=== PATIENT | female | born 1995 | race Caucasian/White ===

== ENCOUNTER → 2024-07-01 | Outpatient (CLI) | payer OTHER, SELFPAY ==
[2024-07-01 12:17] LABS: Absolute Lymphocyte Count 2.42 X10^3/uL (0.83-4.51); Absolute Neutrophil Count 5.8 X10^3/uL (2.0-7.7); Basophil# 0.04 X10^3/uL; Basophil% 0.4 % (0-1); Eosinophil# 0.09 X10^3/uL; Hematocrit 42.7 % (37-47); Lymphocyte # 2.42 X10^3/ul (0.83-4.51); Lymphocyte % 27.1 % (19-41); Mean Corp Hgb Conc 32.8 g/dL (32-36); Mean Corpuscular Hgb 27.1 pg (27.0-32.0); Mean Corpuscular Volume 82.6 fL (81-99); Mean Platelet Vol. 11.1 fl (6.2-12.0); Monocyte# 0.52 X10^3/uL; Monocyte% 5.8 % (0-10); NRBC Flagged by Analyzer 0 % (0-5); Neutrophil # 5.82 X10^3/uL (2.7-7.7); Neutrophil % 65.4 % (47-70); Platelet Count 303 K/mm3 (150-450); RBC Distribution Width SD 41.8 fl (35.1-43.9); Red Blood Count 5.17 M/mm3 (4.2-5.4); White Blood Count 8.9 K/mm3 (4.4-11.0)
[2024-07-01 13:16] LABS: ALB/GLOB Ratio 1.5 RATIO (0.9-2.4); AST(SGOT) 19 U/L (<=31); Alanine Aminotransfer ALT/SGPT 30 U/L (<=34); Albumin, Serum 4.7 g/dL (3.5-5.0); Alkaline Phosphatase 93 U/L (35-104); Anion Gap 13 (5-15); BUN 7 mg/dL (4-19); BUN/Creat Ratio 13.1 RATIO (10-20); Calcium,Total 9.9 mg/dL (7.6-11.0); Chloride 103 mmol/L (98-108); Cholesterol 154 mg/dL (<=200); Creatinine, Serum 0.55 mg/dL (0.70-1.20); EST Glomerular Filtration Rate 128 (>60); Glucose 94 mg/dL (70-99); High Density Lipoprotein 37 mg/dL; Low Density Lipoprotein Calc. 95 mg/dL; Potassium 3.8 mmol/L (3.3-5.1); Protein, Total 7.7 g/dL (5.9-8.4); Sodium Level 141 mmol/L (133-145); Total Bilirubin 0.63 mg/dL (0.00-1.30); Triglycerides 112 mg/dL; Very Low Density Lipoprotein 22 mg/dL (5-40); Vitamin D,25 Hydroxy 26.3 ng/mL (30-100); cholesterol:hdl ratio screen 4.16
[2024-07-05 22:51] LABS: HPV Reflexed? NOT INDICATED
== END | disposition home or self-care (01) ==
PROVIDERS: Referring Provider Nurse Practitioner Family; Visit Provider Nurse Practitioner Family
DX: N91.2 Amenorrhea, unspecified (principal); Z12.4 Encounter for screening for malignant neoplasm of cervix; Z13.29 Encounter for screening for other suspected endocrine disorder
CPT/HCPCS: 36415; 80053; 80061; 82306; 84439; 84443; 85025; 88175; G0145

== ENCOUNTER → 2024-08-13 | Outpatient (CLI) | payer OTHER, SELFPAY ==
--- NOTE | 2024-08-13 15:22 | US_ITS ---
PROCEDURE: PELVIC W/ TRANSVAGINAL 08/13/2024 REASON FOR EXAM: AMENORRHEA TECHNIQUE: PELVIC W/ TRANSVAGINAL FINDINGS: Measurements: Uterus: 9.1 x 5 x 3.9 cm. Uterus is anteverted. No obvious fibroids. Endometrium thickness measures 7.1 mm. It shows hyperechoic echotexture. Heterogenous appearance of the lower uterine segment/cervix. Right ovary only visualized transabdominally and measures 2.5 x 1.9 x 1.6 cm. Normal blood flow. No obvious lesions. Left ovary only visualized transabdominally and measures 3.5 x 1.9 x 1.5 cm. No free fluid in the posterior cul-de-sac. Urinary bladder volume is 575.3 cc. On transabdominal ultrasound uterus appeared didelphys on sagittal plan however on transverse and transvaginal view this appearance could not be appreciated. US/Pelvic w/ Transvaginal IMPRESSION: Heterogenous appearance of the lower uterine segment/cervix. On transabdominal ultrasound uterus appeared didelphys on sagittal plan however on transverse and transvaginal view this appearance could not be appreciated. Advise further evlauation if needed. Reading [facility] [place]
== END | disposition home or self-care (01) ==
PROVIDERS: Referring Provider Nurse Practitioner Family; Visit Provider Nurse Practitioner Family
DX: N91.2 Amenorrhea, unspecified (principal)
CPT/HCPCS: 76830; 76856